=== PATIENT | female | born 1950 | race Caucasian/White ===

== ENCOUNTER → 2018-02-22 | Outpatient (CLI) | payer MEDICARE ==
--- NOTE | 2018-02-22 15:09 | CONS ---
CONSULTATION DATE OF SERVICE: 03/04/2018 A 68-year-old lady who has been evaluated in the [facility] for difficulties to initiate and maintain sleep and possible obstructive sleep apnea-hypopnea syndrome. HISTORY OF PRESENT ILLNESS/SLEEP-WAKE EVALUATION: Patient usual sleep schedule from 11 p.m. until 6 - 7 a.m. She does have problem with falling asleep, has TV set in bedroom, usually sleeps on the side by herself. Sleeps with snoring and multiple awakenings from sleep with dry mouth, episodes of restless legs and nocturia. Usually she wakes up around 5 - 6 times at night with up to 4 episodes of nocturia at night. She also has episodes of kicking at night and feels discomfort in the legs while falling asleep. There is decreasing with movements of the legs. No history of hypnagogic hallucinations, sometimes patient wakes up in the middle of the night and know that she is in the middle of the dreaming, but at the same time that she is aware about surrounding. Leonore Sleepiness Scale significantly increased to 13. PAST MEDICAL HISTORY: 1. Positive for diabetes mellitus, on treatment with insulin, several eyelid surgery for low position of eyelids, possibly history of floppy eyelid syndrome. 2. History of increased size of the thyroid. MEDICATIONS: Insulin. SOCIAL HISTORY: Negative for smoking. Alcohol consumption occasional. FAMILY HISTORY: Heart problems, arthritis, sleep apnea, snoring, diabetes, thyroid problem, restless legs. REVIEW OF SYSTEMS: Multiple awakenings from sleep, restless leg symptoms, sleepiness during the day. . PHYSICAL EXAM: lady without distress. BP 146/82, HR 90, RR 16, height 5 feet 5 inches, weight 245, body mass index 40.7. Neck 15 inches in circumference. Temperature 98.3, oxygen saturation at room air 97%. OROPHARYNX: Moderately low position of soft palate, short distance between soft palate and posterior pharyngeal wall. Some restriction of nasal breathing. Thyroid palpable with a question. ABDOMEN: Obese. LUNGS Clear to percussion and to auscultation. Good air exchange. No wheezing or rhonchi. HEART S1, S2 regular. No murmurs, gallops, or rubs. EXTREMITIES No clubbing or cyanosis. [employer] Awake, alert, and oriented X3. Cranial nerves 2 to 7 intact. There is no fasciculation or atrophy. noted. No focal deficits observed. IMPRESSION: 1. Snoring, short distance between soft palate and pharyngeal wall, multiple awakenings from sleep with a dry mouth and nocturia, excessive daytime sleepiness, obstructive sleep apnea-hypopnea syndrome. 2. Restless legs syndrome. 3. Episodes of multiple kicking at night. Possible periodic limb movements. 4. Obesity. 5. Diabetes mellitus. 6. Status post two surgeries for low positions of eyelids. Possible history of floppy eyelid syndrome which is associated with increasing risk of sleep apnea. 7. Status post face lift surgery. PLAN: 1. Polysomnography for evaluation of patient's breathing during sleep and also to check for periodic limb movements. 2. CPAP/BiPAP titration if sleep study confirms obstructive sleep apnea-hypopnea syndrome. 3. Preferable position during sleep on the side. 4. No driving if patient feels any sleepiness. 5. I will see patient for follow up visit to explain results of testing and following plan. 6. Psychological techniques for treatment of insomnia should include stimulus control, paradoxical intention, worry time, no watching clock, which should include stop watching TV in bedroom. Thank you very much for referring this patient for consultation. Sincerely, Lyndon Mendoza MD, PhD, FAASM Diplomat of [place] [employer] [place] [employer] [facility] Lyndon Mendoza MD, PhD, FAASM Diplomat of [place] [employer] [place] [employer] [facility] [employer] of [facility] 1. Just take plan from my template #1 will be polysomnography for evaluation of patient breathing during the sleep and also to check for periodic limb movements at the end of the plan. Also place put psychological beginnings for treatment of insomnia should include stimulus control, paradoxical intention, worry time no watching clock which should include stuff, watching TV in bedroom. 2. Thank you very much for asking space for consultation. 3. 4. Sincerely. 5. 6. 7. 8. Lyndon Mendoza MD, PhD, FAASM. 9. Diplomat of [place] [employer]. 10.[place] [employer]. 11.[facility] [facility] [place] [facility]. 12. 13. MMODL / IJN: [id number] /
== END | disposition home or self-care (01) ==
LOC: SLEEP 10:47
PROVIDERS: ATTEND Internal Medicine
DX: G47.33 Obstructive sleep apnea (adult) (pediatric) (principal); G25.81 Restless legs syndrome; E66.9 Obesity, unspecified; E11.9 Type 2 diabetes mellitus without complications; Z68.41 Body mass index [BMI] 40.0-44.9, adult; Z98.890 Other specified postprocedural states; Z79.4 Long term (current) use of insulin
CPT/HCPCS: 99211

== ENCOUNTER → 2018-06-14 | Outpatient (CLI) | payer MEDICARE ==
--- NOTE | 2018-06-14 16:24 | PN ---
PROGRESS NOTE DATE OF SERVICE: 06/14/2018 This patient is a 68-year-old lady who has been followed in [facility] Center for treatment of obstructive sleep apnea-hypopnea syndrome. Recently the patient had a polysomnogram and CPAP titration, and I discussed results of her sleep studies with the patient in detail. During diagnostic sleep study, it was documented that she has severe sleep apnea, with apnea-hypopnea index 33 and oxygen desaturation to 76.4%. During titration her respiration was under control with CPAP. She received her CPAP unit and today is her first visit after she started to use her CPAP machine. The patient is able to use her CPAP unit every night for the whole night without significant problems. There were recently some problems related to humidification, but after adjustments, now she is fine and does not have any problems. She sleeps better with the machine. She feels better during the day. Her [place] Sleepiness Scale today is 6. I checked her CPAP unit. Reading from the machine showed usage 100% of the nights, and 93% of the nights for more than 4 hours. Average usage is 7 hours 34 minutes per night. Pressure is in the range between 7 and 12. Her 95th percentile pressure is 11.8. Apnea-hypopnea index reading is 2 to 2.4, which is absolutely within normal range. MEDICATIONS: Insulin. PHYSICAL EXAMINATION: GENERAL: A pleasant patient in no distress. VITAL SIGNS: BP 152/72, HR 72, RR 16, weight 249, temperature 97.6, oxygen saturation at room air 98%. HEENT: PERRLA, EOMI. Evaluation of oropharynx showed tongue protrudes midline. Low position of soft palate. NECK: Supple. No JVD. Thyroid is not palpable. LUNGS: Clear to percussion and to auscultation. Good air exchange. No wheezing or rhonchi. HEART: S1, S2 regular. No murmurs, gallops or rubs. ABDOMEN: Obese. EXTREMITIES: No clubbing or cyanosis. RECORD LABEL INTERN: Awake, alert, and oriented X3. Cranial nerves 2 to 7 intact. There is no fasciculation or atrophy. noted. No focal deficits observed. IMPRESSION: 1. Severe obstructive sleep apnea-hypopnea syndrome; apnea-hypopnea index 33. The patient demonstrated 100% compliance with treatment, benefitting from treatment. 2. Obesity. 3. Diabetes mellitus. 4. Status post surgical treatment of low position of eyelids, possible floppy eyelid syndrome. 5. Status post face lift surgery. PLAN: 1. Patient will continue to use her CPAP equipment every night for the whole night. 2. Sleep hygiene with regular time in bed for at least 8 hours. 3. No driving if feeling any sleepiness. 4. Losing weight. 5. We will maintain all necessary CPAP prescriptions, including mask, tube, filters. 6. Follow-up visit in 10 months. Thank you very much for allowing me to participate in the management of your patient. Sincerely, Lyndon Mendoza MD, PhD, FAASM Diplomat of [place] [employer] [place] [employer] Screening Representative of [facility] [place] MMODL / IJN: [id number] /
== END ==
LOC: SLEEP 13:38
PROVIDERS: ATTEND Internal Medicine
DX: G47.33 Obstructive sleep apnea (adult) (pediatric) (principal); E66.9 Obesity, unspecified; E11.9 Type 2 diabetes mellitus without complications; Z98.890 Other specified postprocedural states; Z99.89 Dependence on other enabling machines and devices; Z79.4 Long term (current) use of insulin

== ENCOUNTER → 2020-04-14 | Outpatient (CLI) | payer MEDICARE ==
--- NOTE | 2020-04-14 14:16 | US ---
EXAMINATION TYPE: US thyroid st tissue head/neck DATE OF EXAM: 04/14/2020 COMPARISON: US CLINICAL HISTORY: E04.1 thyroid nodule. Takes low dose Synthroid. GLAND SIZE: Right Lobe: 5.7 x 2.6 x 2.0 cm Overall Parenchyma: heterogenous Left Lobe: 6.3 x 3.3 x 2.3 cm Overall Parenchyma: heterogeneous Isthmus Thickness: 1.2 cm NODULES RIGHT: # of nodules measured on right: 2 1. 1.1 X 0.9 x 0.4 cm solid or almost completely solid, hypoechoic nodule mid pole, which is wider than tall, with ill-defined margins, without echogenic foci. Prior size: 0.9 x 0.9 x 0.6 cm 2. 0.7 X 0.6 x 0.5 cm solid or almost completely solid, hypoechoic nodule, which is wider than tall , with ill-defined margins, without echogenic foci. Prior size: 0.7 x 0.7 x 0.5 cm LEFT: # of nodules measured on left: 1 1. 0.9 X 0.96 x 0.6 cm solid or almost completely solid, hyperechoic nodule, which is wider than ta ll, with lobulated or irregular margins, without echogenic foci. Prior size: not seen ISTHMUS: # of nodules measured in the isthmus: 0 Bilateral neck scanned: no evidence of lymphadenopathy. IMPRESSION: Moderately suspicious, follow-up recommended in one year 2017 ACR TI-RADS LEVEL: TR 4 *Highest TI-RADS level nodule reported
[2020-04-14 14:53] LABS: T4, Free (Free Thyroxine) 0.92 ng/dL (0.78-2.19)
[2020-04-14 22:11] LABS: Thyroid Peroxidase Antibodies 807.5 U/mL (0.0-60.0)
== END | disposition home or self-care (01) ==
LOC: RADUSWWP 12:56
PROVIDERS: ATTEND Allergy & Immunology
DX: E04.1 Nontoxic single thyroid nodule (principal); E03.9 Hypothyroidism, unspecified
CPT/HCPCS: 76536; 84439; 84443; 86376; 86800; 86900; 86901

== ENCOUNTER → 2020-04-28 | Outpatient (CLI) | payer MEDICARE ==
[2020-04-29 10:34] LABS: Avocado Class CLASS 0; Latex IgE Class CLASS 0
== END | disposition home or self-care (01) ==
LOC: LABWHC1 13:15
PROVIDERS: ATTEND Allergy & Immunology
DX: L50.8 Other urticaria (principal)
CPT/HCPCS: 36415; 86003

== ENCOUNTER → 2020-11-25 | Outpatient (CLI) | payer MEDICARE ==
--- NOTE | 2020-11-25 11:51 | US ---
EXAMINATION TYPE: US thyroid st tissue head/neck DATE OF EXAM: 11/25/2020 COMPARISON: US 04/14/2020 CLINICAL HISTORY: E04.1 Thyroid Nodule. F/U GLAND SIZE: Right Lobe: 6.3 x 1.8 x 2.8 cm Overall Parenchyma: Grossly heterogeneous Left Lobe: 7.4 x 2.4 x 2.5 cm Overall Parenchyma: Grossly heterogeneous Isthmus Thickness: 1.1 cm NODULES RIGHT: # of nodules measured on right: 2 1. 0.9 X 0.4 x 0.7 cm, mid, solid or almost completely solid, isoechoic nodule, which is wider than tall, with ill-defined margins, without echogenic foci. Prior size: 1.1 x 0.9 x 0.4 cm 2. 0.6 X 0.5 x 0.6 cm, mid, solid or almost completely solid, hyperechoic nodule, which is wider th an tall, with ill-defined margins, without echogenic foci. Prior size: 0.7 x 0.6 x 0.5 cm LEFT: # of nodules measured on left: 0 Bilateral neck scanned, no evidence of lymphadenopathy. Bilateral thyroid enlarged, heterogeneous. St able nodules right. IMPRESSION: Small right-sided thyroid nodules. 2017 ACR TI-RADS LEVEL: TR-RADS 3 - Mildly Suspicious: Follow if > 1.5 cm, FNA if > 2.5 cm *Highest TI-RADS level nodule reported
== END | disposition home or self-care (01) ==
LOC: RADUSWWP 07:28
PROVIDERS: ATTEND Otolaryngology
DX: E04.2 Nontoxic multinodular goiter (principal)
CPT/HCPCS: 76536

== ENCOUNTER 2021-05-16 16:15 | Inpatient (IN) | payer MEDICARE ==
[2021-05-16] MEDS ORDERED: SODIUM CHLORIDE 0.9% 1,000 ML IV ONE ×2 (16:41→17:37)
[2021-05-16] MEDS ORDERED: SODIUM CHLORIDE 0.9% 500 ML 500 ML IV ONE (16:41)
[2021-05-16] MEDS ORDERED: ONDANSETRON 4 MG/2 ML VIAL IVP STA (16:42)
--- NOTE | 2021-05-16 16:45 | ED ---
Recheck HPI - General Chief Complaint: Recheck/Abnormal Lab/Rx Stated Complaint: SOB,Fatigue Time Seen by Provider: 05/16/21 16:33 Source: patient Mode of arrival: ambulatory Limitations: no limitations - History of Present Illness Initial Comments: 71 year-old female patient presents to the emergency department for evaluation of vomiting, hyperglycemia, and dry cough. States that symptoms started a few days ago. States that she did have a negative home COVID test this morning. States that she was recently started on new insulin, her blood sugars are controlled when she goes to sleep, and are high when she wakes up on the morning. She denies any fever or chills. She reports chest pressure and shortness of breath both at rest and with activity. Denies any nasal congestion or drainage. Denies any diarrhea or constipation. Denies any sick contacts. Her physician sent her in for evaluation for possible ketosis. - Related Data Home Medications Medication Instructions Recorded Confirmed Insulin Regular [humuLIN R] 15 units SQ TID 08/05/14 08/07/14 Multivitamins, Thera [Theragran] 1 each PO DAILY 08/05/14 08/07/14 Allergies Allergy/AdvReac Type Severity Reaction Status Date / Time Penicillins Allergy Rash/Hives. Verified 05/16/21 16:22 ITCHING. INFLAMMED SKIN. Review of Systems ROS Statement: Those systems with pertinent positive or pertinent negative responses have been documented in the HPI. ROS Other: All systems not noted in ROS Statement are negative. Past Medical History Past Medical History: Diabetes Mellitus Additional Past Medical History / Comment(s): INSULIN DEPENDENT History of Any Multi-Drug Resistant Organisms: None Reported Past Surgical History: Appendectomy, Tonsillectomy Additional Past Surgical History / Comment(s): RIGHT OOPHERECTOMY. ABDOMINALPLASTY, BREAST REDUCTION. BILATERAL BLEPHAROPLASTY. Past Anesthesia/Blood Transfusion Reactions: Previous Problems w/ Anesthesia Additional Past Anesthesia/Blood Transfusion Reaction / Comment(s): STATES "" POST ANESTHESIA/SURGERY A CHILD. Past Psychological History: No Psychological Hx Reported Smoking Status: Never smoker Past Alcohol Use History: None Reported Past Drug Use History: None Reported General Exam Limitations: no limitations General appearance: alert, in no apparent distress, other (This is a well- developed, well-nourished adult female in no acute distress.) ENT exam: Present: normal exam, normal oropharynx, mucous membranes moist Respiratory exam: Present: normal lung sounds bilaterally. Absent: respiratory distress, wheezes, rales, rhonchi, stridor Cardiovascular Exam: Present: normal rhythm, tachycardia, normal heart sounds. Absent: systolic murmur, diastolic murmur, rubs, gallop, clicks GI/Abdominal exam: Present: soft, normal bowel sounds. Absent: distended, tenderness, guarding, rebound, rigid Neurological exam: Present: alert, oriented X3, CN II-XII intact Psychiatric exam: Present: normal affect, normal mood Skin exam: Present: warm, dry, intact, normal color. Absent: rash Course Vital Signs 05/16/21 05/16/21 16:22 17:42 Temperature 98.2 F Pulse Rate 154 H 124 H Respiratory 20 18 Rate Blood Pressure 144/83 151/82 O2 Sat by Pulse 100 97 Oximetry Medical Decision Making - Medical Decision Making 71-year-old female patient presented to the emergency department today for evaluation of weakness, vomiting, dry cough, shortness of breath. Physical examination did reveal clear equal lung sounds. She is tachycardic in the 150s. Initial blood glucose check was 489. Labs reviewed and did reveal sodium of 1:30, potassium 5.2, chloride 94, carbon dioxide 9, anion gap 27, BUN 19, glucose 528, lactic acid 3.1, phosphorus 5.3, AST 37, alk phos 212. She did test positive for acetone. Covid test was negative. Lactic acid is more related to DKA rather than infection. Her white blood cell count is normal. Chest x-ray was negative for infection. She will be admitted to the hospital with insulin drip and IV fluids. I did discuss findings results with her. She is agreeable this plan. My attending is Dr. Little. - Lab Data Result diagrams: 05/16/21 17:00 05/16/21 17:00 Lab Results 05/16/21 05/16/21 05/16/21 Range/Units 16:52 16:55 17:00 WBC 8.1 (3.8-10.6) k/uL RBC 4.06 (3.80-5.40) m/uL Hgb 12.9 (11.4-16.0) gm/dL Hct 42.0 (34.0-46.0) % MCV 103.6 H (80.0-100.0) fL MCH 31.9 (25.0-35.0) pg MCHC 30.8 L (31.0-37.0) g/dL RDW 13.4 (11.5-15.5) % Plt Count 302 (150-450) k/uL MPV 9.1 Neutrophils % 75 % Lymphocytes % 20 % Monocytes % 3 % Eosinophils % 0 % Basophils % 1 % Neutrophils # 6.1 (1.3-7.7) k/uL Lymphocytes # 1.6 (1.0-4.8) k/uL Monocytes # 0.3 (0-1.0) k/uL Eosinophils # 0.0 (0-0.7) k/uL Basophils # 0.0 (0-0.2) k/uL Hypochromasia Marked Macrocytosis Slight Sodium (137-145) mmol/L Potassium (3.5-5.1) mmol/L Chloride (98-107) mmol/L Carbon Dioxide (22-30) mmol/L Anion Gap mmol/L BUN (7-17) mg/dL Creatinine (0.52-1.04) mg/dL Est GFR (CKD-EPI)AfAm (>60 ml/min/1.73 sqM) Est GFR (CKD-EPI)NonAf (>60 ml/min/1.73 sqM) Glucose (74-99) mg/dL POC Glucose (mg/dL) 492 H 489 H (75-99) mg/dL POC Glu [place] ID Radha, Kel Radha, Kel Plasma Lactic Acid Lazaro (0.7-2.0) mmol/L Calcium (8.4-10.2) mg/dL Phosphorus (2.5-4.5) mg/dL Magnesium (1.6-2.3) mg/dL Total Bilirubin (0.2-1.3) mg/dL AST (14-36) U/L ALT (4-34) U/L Alkaline Phosphatase (38-126) U/L Total Protein (6.3-8.2) g/dL Albumin (3.5-5.0) g/dL Acetone, Qual (Negative) Coronavirus (PCR) (Not Detectd) 01/23/22 01/23/22 01/23/22 Range/Units 17:00 17:00 17:41 WBC (3.8-10.6) k/uL RBC (3.80-5.40) m/uL Hgb (11.4-16.0) gm/dL Hct (34.0-46.0) % MCV (80.0-100.0) fL MCH (25.0-35.0) pg MCHC (31.0-37.0) g/dL RDW (11.5-15.5) % Plt Count (150-450) k/uL MPV Neutrophils % % Lymphocytes % % Monocytes % % Eosinophils % % Basophils % % Neutrophils # (1.3-7.7) k/uL Lymphocytes # (1.0-4.8) k/uL Monocytes # (0-1.0) k/uL Eosinophils # (0-0.7) k/uL Basophils # (0-0.2) k/uL Hypochromasia Macrocytosis Sodium 130 L (137-145) mmol/L Potassium 5.2 H (3.5-5.1) mmol/L Chloride 94 L (98-107) mmol/L Carbon Dioxide 9 L* (22-30) mmol/L Anion Gap 27 mmol/L BUN 19 H (7-17) mg/dL Creatinine 0.94 (0.52-1.04) mg/dL Est GFR (CKD-EPI)AfAm 70 (>60 ml/min/1.73 sqM) Est GFR (CKD-EPI)NonAf 61 (>60 ml/min/1.73 sqM) Glucose 528 H* (74-99) mg/dL POC Glucose (mg/dL) (75-99) mg/dL POC Glu [place] ID Plasma Lactic Acid Lazaro 3.1 H* (0.7-2.0) mmol/L Calcium 9.6 (8.4-10.2) mg/dL Phosphorus 5.3 H (2.5-4.5) mg/dL Magnesium 1.9 (1.6-2.3) mg/dL Total Bilirubin 0.9 (0.2-1.3) mg/dL AST 37 H (14-36) U/L ALT 27 (4-34) U/L Alkaline Phosphatase 212 H (38-126) U/L Total Protein 7.8 (6.3-8.2) g/dL Albumin 4.5 (3.5-5.0) g/dL Acetone, Qual Positive (Negative) Coronavirus (PCR) Not Detected (Not Detectd) - EKG Data -: EKG Interpreted by Me EKG Comments: EKG obtained at 1634 shows sinus tachycardia with a first-degree AV block, left anterior fascicular block. Ventricular rate is 151, DC interval 216, QRS duration 90, QT 328, QTC 519. No evidence of ST elevation or depression. - Radiology Data Radiology results: report reviewed, image reviewed 2 views of the chest are obtained. Report was reviewed in its entirety. Impression by Dr. Alves shows no active cardiopulmonary disease. No change. Disposition Clinical Impression: DKA (diabetic ketoacidosis) Disposition: ADMITTED IP TO THIS [facility] Condition: Serious Referrals: Vi Mckenzie MD [Primary Care Provider] - 1-2 days Decision to Admit Reason: Admit from EC Decision Date: 05/16/21 Decision Time: 18:10
[2021-05-16 17:08] LABS: Glucose,Whole Blood 492 mg/dL (75-99)
[2021-05-16 17:08] LABS: Glucose,Whole Blood 489 mg/dL (75-99)
[2021-05-16 17:16] LABS: Basophils % (A) 1 %; Eosinophils % (A) 0 %; HGB 12.9 gm/dL (11.4-16.0); Hypochromasia Marked; Lymphocytes # (A) 1.6 k/uL (1.0-4.8); Lymphocytes % (A) 20 %; MCH 31.9 pg (25.0-35.0); MCHC 30.8 g/dL (31.0-37.0); MCV 103.6 fL (80.0-100.0); Macrocytosis Slight; Mean Platelet Volume 9.1; Monocytes # (A) 0.3 k/uL (0-1.0); Monocytes % (A) 3 %; Neutrophils # (A) 6.1 k/uL (1.3-7.7); Neutrophils % (A) 75 %; Platelet Count 302 k/uL (150-450); RBC 4.06 m/uL (3.80-5.40); RDW 13.4 % (11.5-15.5); WBC 8.1 k/uL (3.8-10.6)
[2021-05-16 17:26] LABS: ALT 27 U/L (4-34); AST 37 U/L (14-36); African American GFR (CKD) 70 (>60 ml/min/1.73 sqM); Albumin 4.5 g/dL (3.5-5.0); Alkaline Phosphatase 212 U/L (38-126); Anion Gap 27 mmol/L; Blood Urea Nitrogen 19 mg/dL (7-17); Calcium 9.6 mg/dL (8.4-10.2); Chloride 94 mmol/L (98-107); Magnesium 1.9 mg/dL (1.6-2.3); Non-African American GFR(CKD) 61 (>60 ml/min/1.73 sqM); Phosphorus 5.3 mg/dL (2.5-4.5); Sodium 130 mmol/L (137-145); Total Bilirubin 0.9 mg/dL (0.2-1.3); Total Protein 7.8 g/dL (6.3-8.2)
--- NOTE | 2021-05-16 17:29 | XR ---
EXAMINATION TYPE: XR chest 2V DATE OF EXAM: 05/16/2021 COMPARISON: NONE HISTORY: Cough and short of breath TECHNIQUE: 2 views FINDINGS: Heart is normal. Lungs are clear of infiltrate. There is no heart failure. There are no hil ar masses. Bony thorax is intact. There are chest leads. IMPRESSION: No active cardiopulmonary disease. No change.
[2021-05-16 17:35] LABS: Carbon Dioxide 9 mmol/L (22-30); Glucose 528 mg/dL (74-99); Potassium 5.2 mmol/L (3.5-5.1)
[2021-05-16] MEDS ORDERED: INSULIN REGULAR BOLUS (FROM DRIP BAG) IV ONE (17:37)
[2021-05-16] MEDS ORDERED: Potassium Replacement Protocol 1 EACH MISC MISCELLANE PRN (17:37)
[2021-05-16] MEDS ORDERED: Magnesium Replacement Protocol 1 EACH MISC MISCELLANE PRN (17:37)
[2021-05-16] MEDS: INSULIN REGULAR 100 UNIT in SODIUM CHLORIDE 0.9% 100 ML IV SCH (18:05)
[2021-05-16] MEDS ORDERED: ONDANSETRON 4 MG/2 ML VIAL IVP PRN (18:06)
[2021-05-16] MEDS ORDERED: NALOXONE 0.4 MG/ML 1 ML VIAL IV PRN (18:06)
[2021-05-16 19:05] LABS: Glucose,Whole Blood 497 mg/dL (75-99)
[2021-05-16 19:17] LABS: VBG PH 7.18 (7.31-7.41)
[2021-05-16 19:19] LABS: Phosphorus 4.2 mg/dL (2.5-4.5); Potassium 4.9 mmol/L (3.5-5.1)
[2021-05-16 20:21] LABS: Glucose,Whole Blood 284 mg/dL (75-99)
[2021-05-16] MEDS: SODIUM CHLORIDE 0.9% 1,000 ML IV SCH (20:31)
[2021-05-16] MEDS: D5-0.45% NACL WITH KCL 20MEQ/L 1,000 ML IV SCH (20:36)
[2021-05-16 21:10] LABS: Glucose,Whole Blood 178 mg/dL (75-99)
[2021-05-16 22:15] LABS: Glucose,Whole Blood 112 mg/dL (75-99)
[2021-05-16 23:19] LABS: Glucose,Whole Blood 102 mg/dL (75-99)
[2021-05-17 00:27] LABS: Potassium 4.4 mmol/L (3.5-5.1)
[2021-05-17 00:38] LABS: Glucose,Whole Blood 155 mg/dL (75-99)
[2021-05-17 01:34] LABS: Glucose,Whole Blood 201 mg/dL (75-99)
[2021-05-17 02:16] LABS: Glucose,Whole Blood 118 mg/dL (75-99)
[2021-05-17 03:08] LABS: Glucose,Whole Blood 100 mg/dL (75-99)
[2021-05-17 03:43] LABS: Glucose,Whole Blood 101 mg/dL (75-99)
[2021-05-17 04:27] LABS: Glucose,Whole Blood 110 mg/dL (75-99)
[2021-05-17 06:13] LABS: Glucose,Whole Blood 293 mg/dL (75-99)
[2021-05-17 06:13] LABS: Glucose,Whole Blood 245 mg/dL (75-99)
[2021-05-17] MEDS: INSULIN REGULAR 100 UNIT in SODIUM CHLORIDE 0.9% 100 ML IV SCH ×2 (06:15→19:55)
[2021-05-17] MEDS: D5-0.45% NACL WITH KCL 20MEQ/L 1,000 ML IV SCH ×3 (06:15→19:02)
[2021-05-17] MEDS: LEVOTHYROXINE 50 MCG TAB PO SCH (06:18)
[2021-05-17 07:14] LABS: Calcium 8.6 mg/dL (8.4-10.2); Potassium 4.4 mmol/L (3.5-5.1)
[2021-05-17 07:51] LABS: Glucose,Whole Blood 307 mg/dL (75-99)
[2021-05-17 08:53] LABS: Glucose,Whole Blood 267 mg/dL (75-99)
[2021-05-17] MEDS: CYANOCOBALAMIN 500 MCG TAB PO SCH (09:12)
[2021-05-17 09:36] LABS: Glucose,Whole Blood 248 mg/dL (75-99)
[2021-05-17 10:56] LABS: Glucose,Whole Blood 309 mg/dL (75-99)
[2021-05-17 11:48] LABS: Glucose,Whole Blood 252 mg/dL (75-99)
[2021-05-17 12:33] LABS: African American GFR (CKD) >90 (>60 ml/min/1.73 sqM); Anion Gap 15 mmol/L; Blood Urea Nitrogen 13 mg/dL (7-17); Carbon Dioxide 17 mmol/L (22-30); Chloride 102 mmol/L (98-107); Glucose 280 mg/dL (74-99); Non-African American GFR(CKD) 82 (>60 ml/min/1.73 sqM); Potassium 3.9 mmol/L (3.5-5.1); Sodium 134 mmol/L (137-145)
[2021-05-17 12:33] LABS: Glucose,Whole Blood 208 mg/dL (75-99)
--- NOTE | 2021-05-17 12:50 | P.HPIM ---
History of Present Illness 71-year-old female was having symptoms of dry cough generalized weakness and nausea vomiting because of which patient went to urgent care thinking that she has COVID-19 although Covid 19 is negative patient is found to have highly e levated blood sugars and patient was later found to be in DKA and patient was subsequently admitted here patient blood sugars has not been under well control lately since her insulin regimen was changed patient looks like takes short- acting insulin around 30 units with each meal does not duglas remain on long- acting insulin patient is type II diabetic insulin deficient. Patient has multiple other provided abnormalities consistent with DKA including hyponatremia and hyperkalemia which improved at this time and patient is presently in DKA protocol patient last anion gap is 15. REVIEW OF SYSTEMS: CONSTITUTIONAL: No fever,HEENT: No recent visual problems or hearing problems. Denied any sore throat. CARDIOVASCULAR: No chest pain, orthopnea, PND, no palpitations, no syncope. PULMONARY: No shortness of breath, no cough, no hemoptysis. GASTROINTESTINAL: As mentioned in HPI NEUROLOGICAL: No headaches, no weakness, no numbness. HEMATOLOGICAL: Denies any bleeding or petechiae. GENITOURINARY: Denies any burning micturition, frequency, or urgency. MUSCULOSKELETAL/RHEUMATOLOGICAL: Denies any joint pain, swelling, or any muscle pain. ENDOCRINE: Denies any polyuria or polydipsia. The rest of the 14-point review of systems is negative. PHYSICAL EXAMINATION: GENERAL: The patient is clinically doing well alert oriented 3 HEENT: Pupils are round and equally reacting to light. EOMI. No scleral icterus. No conjunctival pallor. Normocephalic, atraumatic. No pharyngeal erythema. No thyromegaly. CARDIOVASCULAR: S1 and S2 present. No murmurs, rubs, or gallops. PULMONARY: Chest is clear to auscultation, no wheezing or crackles. ABDOMEN: Soft, nontender, nondistended, normoactive bowel sounds. No palpable organomegaly. MUSCULOSKELETAL: No joint swelling or deformity. EXTREMITIES: No cyanosis, clubbing, or pedal edema. NEUROLOGICAL: Gross neurological examination did not reveal any focal deficits. SKIN: No rashes. Assessment and plan -Diabetic ketoacidosis acidosis: Continue with DKA protocol was anion gap comes down below 12 patient will be transitioned to IV normal saline, long-acting insulin will use a 45 units of long-acting insulin, along with 15 units of the short-acting insulin with each meal. Along with sliding scale. Patient presently is on IV insulin closely monitor electrolytes serum sodium is 134 secondary to elevated blood sugars. -Anion gap metabolic acidosis secondary to diabetic ketoacidosis -Hypothyroidism -Type 2 diabetes mellitus uncontrolled elevated blood sugars patient is insulin- dependent type 2 diabetic because of which patient ended up in DKA. DVT prophylaxis: Lovenox Past Medical History Past Medical History: Diabetes Mellitus, Osteoarthritis (OA), Sleep Apnea/CPAP/BIPAP, Thyroid Disorder Additional Past Medical History / Comment(s): INSULIN DEPENDENT JUST GOT NEW C- PAP History of Any Multi-Drug Resistant Organisms: None Reported Past Surgical History: Appendectomy, Tonsillectomy Additional Past Surgical History / Comment(s): RIGHT OOPHERECTOMY. ABDOMINALPLASTY, BREAST REDUCTION. BILATERAL BLEPHAROPLASTY. Past Anesthesia/Blood Transfusion Reactions: Previous Problems w/ Anesthesia Additional Past Anesthesia/Blood Transfusion Reaction / Comment(s): STATES "" POST ANESTHESIA/SURGERY A CHILD. Past Psychological History: No Psychological Hx Reported Smoking Status: Never smoker Past Alcohol Use History: None Reported Past Drug Use History: None Reported - Past Family History Mother Family Medical History: Congestive Heart Failure (CHF) Father Family Medical History: No Reported History Medications and Allergies Home Medications Medication Instructions Recorded Confirmed Type Acetaminophen [Tylenol Arthritis] 1,300 mg PO DAILY 05/16/21 05/16/21 History Cyanocobalamin (Vitamin B-12) 1,000 mcg PO DAILY 05/16/21 05/16/21 History [Vitamin B-12] Insulin Lispro-Aabc [Lyumjev 30 units SQ AC-TID 05/16/21 05/16/21 History Kwikpen U-200] Levothyroxine Sodium [Synthroid] 50 mcg PO DAILY 05/16/21 05/16/21 History Allergies Allergy/AdvReac Type Severity Reaction Status Date / Time Penicillins Allergy Rash/Hives. Verified 05/16/21 18:49 ITCHING. INFLAMMED SKIN. Physical Exam Vitals: Vital Signs Temp Pulse Pulse Resp BP BP Pulse Ox 05/17/21 12:00 98.6 F 102 H 20 130/72 97 05/17/21 09:10 98.1 F 92 18 123/79 99 05/17/21 04:00 97.7 F 92 18 116/68 97 05/17/21 00:00 98.1 F 92 18 123/74 97 05/16/21 21:35 97.3 F L 109 H 16 150/78 99 05/16/21 21:26 97.3 F L 109 H 18 150/78 99 05/16/21 20:43 100 20 98 05/16/21 19:07 108 H 18 152/81 97 05/16/21 17:42 124 H 18 151/82 97 05/16/21 16:22 98.2 F 154 H 20 144/83 100 Intake and Output 05/16/21 05/17/21 05/17/21 22:59 06:59 14:59 Intake Total 43.526 19.451 13.122 Output Total 800 Balance 43.526 -780.549 13.122 Intake: Intake, IV Titration 43.526 19.451 13.122 Amount Insulin Regular 100 unit 43.526 19.451 13.122 In Sodium Chloride 0.9% 100 ml @ 0.1 UNITS/KG/HR 10.308 mls/hr IV .[id number] [facility] Rx#:[id number] Oral 0 Output: Urine 800 Other: Voiding Method Toilet Toilet Toilet # Voids 1 Weight 102.058 kg Results CBC & Chem 7: 05/16/21 17:00 05/17/21 11:22 Labs: Abnormal Lab Results - Last 24 Hours (Table) 05/16/21 05/16/21 05/16/21 Range/Units 16:52 16:55 17:00 MCV 103.6 H (80.0-100.0) fL MCHC 30.8 L (31.0-37.0) g/dL VBG pH (7.31-7.41) VBG pCO2 (37-51) mmHg VBG HCO3 (24-28) mmol/L Sodium (137-145) mmol/L Potassium (3.5-5.1) mmol/L Chloride (98-107) mmol/L Carbon Dioxide (22-30) mmol/L BUN (7-17) mg/dL Glucose (74-99) mg/dL POC Glucose (mg/dL) 492 H 489 H (75-99) mg/dL Plasma Lactic Acid Lazaro (0.7-2.0) mmol/L Phosphorus (2.5-4.5) mg/dL AST (14-36) U/L Alkaline Phosphatase (38-126) U/L 05/16/21 05/16/21 05/16/21 Range/Units 17:00 17:00 18:29 MCV (80.0-100.0) fL MCHC (31.0-37.0) g/dL VBG pH 7.18 L* (7.31-7.41) VBG pCO2 33 L (37-51) mmHg VBG HCO3 12 L (24-28) mmol/L Sodium 130 L (137-145) mmol/L Potassium 5.2 H (3.5-5.1) mmol/L Chloride 94 L (98-107) mmol/L Carbon Dioxide 9 L* (22-30) mmol/L BUN 19 H (7-17) mg/dL Glucose 528 H* (74-99) mg/dL POC Glucose (mg/dL) (75-99) mg/dL Plasma Lactic Acid Lazaro 3.1 H* (0.7-2.0) mmol/L Phosphorus 5.3 H (2.5-4.5) mg/dL AST 37 H (14-36) U/L Alkaline Phosphatase 212 H (38-126) U/L 05/16/21 05/16/21 05/16/21 Range/Units 18:29 19:02 19:58 MCV (80.0-100.0) fL MCHC (31.0-37.0) g/dL VBG pH (7.31-7.41) VBG pCO2 (37-51) mmHg VBG HCO3 (24-28) mmol/L Sodium 131 L (137-145) mmol/L Potassium (3.5-5.1) mmol/L Chloride 96 L (98-107) mmol/L Carbon Dioxide 10 L (22-30) mmol/L BUN 19 H (7-17) mg/dL Glucose 500 H (74-99) mg/dL POC Glucose (mg/dL) 497 H 284 H (75-99) mg/dL Plasma Lactic Acid Lazaro (0.7-2.0) mmol/L Phosphorus (2.5-4.5) mg/dL AST (14-36) U/L Alkaline Phosphatase (38-126) U/L 05/16/21 05/16/21 05/16/21 Range/Units 20:00 21:06 21:55 MCV (80.0-100.0) fL MCHC (31.0-37.0) g/dL VBG pH (7.31-7.41) VBG pCO2 (37-51) mmHg VBG HCO3 (24-28) mmol/L Sodium (137-145) mmol/L Potassium (3.5-5.1) mmol/L Chloride (98-107) mmol/L Carbon Dioxide (22-30) mmol/L BUN (7-17) mg/dL Glucose (74-99) mg/dL POC Glucose (mg/dL) 178 H 112 H (75-99) mg/dL Plasma Lactic Acid Lazaro 3.2 H* (0.7-2.0) mmol/L Phosphorus (2.5-4.5) mg/dL AST (14-36) U/L Alkaline Phosphatase (38-126) U/L 05/16/21 05/16/21 05/16/21 Range/Units 23:14 23:14 23:14 MCV (80.0-100.0) fL MCHC (31.0-37.0) g/dL VBG pH (7.31-7.41) VBG pCO2 (37-51) mmHg VBG HCO3 (24-28) mmol/L Sodium 134 L (137-145) mmol/L Potassium (3.5-5.1) mmol/L Chloride (98-107) mmol/L Carbon Dioxide 19 L (22-30) mmol/L BUN 18 H (7-17) mg/dL Glucose 100 H (74-99) mg/dL POC Glucose (mg/dL) 102 H (75-99) mg/dL Plasma Lactic Acid Lazaro 2.4 H* (0.7-2.0) mmol/L Phosphorus (2.5-4.5) mg/dL AST (14-36) U/L Alkaline Phosphatase (38-126) U/L 05/17/21 05/17/21 05/17/21 Range/Units 00:17 01:13 02:08 MCV (80.0-100.0) fL MCHC (31.0-37.0) g/dL VBG pH (7.31-7.41) VBG pCO2 (37-51) mmHg VBG HCO3 (24-28) mmol/L Sodium (137-145) mmol/L Potassium (3.5-5.1) mmol/L Chloride (98-107) mmol/L Carbon Dioxide (22-30) mmol/L BUN (7-17) mg/dL Glucose (74-99) mg/dL POC Glucose (mg/dL) 155 H 201 H 118 H (75-99) mg/dL Plasma Lactic Acid Lazaro (0.7-2.0) mmol/L Phosphorus (2.5-4.5) mg/dL AST (14-36) U/L Alkaline Phosphatase (38-126) U/L 05/17/21 05/17/21 05/17/21 Range/Units 02:48 03:05 03:31 MCV (80.0-100.0) fL MCHC (31.0-37.0) g/dL VBG pH (7.31-7.41) VBG pCO2 (37-51) mmHg VBG HCO3 (24-28) mmol/L Sodium (137-145) mmol/L Potassium (3.5-5.1) mmol/L Chloride (98-107) mmol/L Carbon Dioxide (22-30) mmol/L BUN (7-17) mg/dL Glucose (74-99) mg/dL POC Glucose (mg/dL) 100 H 101 H (75-99) mg/dL Plasma Lactic Acid Lazaro 2.9 H* (0.7-2.0) mmol/L Phosphorus (2.5-4.5) mg/dL AST (14-36) U/L Alkaline Phosphatase (38-126) U/L 05/17/21 05/17/21 05/17/21 Range/Units 04:15 05:07 06:09 MCV (80.0-100.0) fL MCHC (31.0-37.0) g/dL VBG pH (7.31-7.41) VBG pCO2 (37-51) mmHg VBG HCO3 (24-28) mmol/L Sodium (137-145) mmol/L Potassium (3.5-5.1) mmol/L Chloride (98-107) mmol/L Carbon Dioxide (22-30) mmol/L BUN (7-17) mg/dL Glucose (74-99) mg/dL POC Glucose (mg/dL) 110 H 245 H 293 H (75-99) mg/dL Plasma Lactic Acid Lazaro (0.7-2.0) mmol/L Phosphorus (2.5-4.5) mg/dL AST (14-36) U/L Alkaline Phosphatase (38-126) U/L 05/17/21 05/17/21 05/17/21 Range/Units 06:36 07:30 08:33 MCV (80.0-100.0) fL MCHC (31.0-37.0) g/dL VBG pH (7.31-7.41) VBG pCO2 (37-51) mmHg VBG HCO3 (24-28) mmol/L Sodium 134 L (137-145) mmol/L Potassium (3.5-5.1) mmol/L Chloride (98-107) mmol/L Carbon Dioxide 18 L (22-30) mmol/L BUN (7-17) mg/dL Glucose 315 H (74-99) mg/dL POC Glucose (mg/dL) 307 H 267 H (75-99) mg/dL Plasma Lactic Acid Lazaro (0.7-2.0) mmol/L Phosphorus (2.5-4.5) mg/dL AST (14-36) U/L Alkaline Phosphatase (38-126) U/L 05/17/21 05/17/21 05/17/21 Range/Units 09:32 10:54 11:22 MCV (80.0-100.0) fL MCHC (31.0-37.0) g/dL VBG pH (7.31-7.41) VBG pCO2 (37-51) mmHg VBG HCO3 (24-28) mmol/L Sodium 134 L (137-145) mmol/L Potassium (3.5-5.1) mmol/L Chloride (98-107) mmol/L Carbon Dioxide 17 L (22-30) mmol/L BUN (7-17) mg/dL Glucose 280 H (74-99) mg/dL POC Glucose (mg/dL) 248 H 309 H (75-99) mg/dL Plasma Lactic Acid Lazaro (0.7-2.0) mmol/L Phosphorus (2.5-4.5) mg/dL AST (14-36) U/L Alkaline Phosphatase (38-126) U/L 05/17/21 05/17/21 Range/Units 11:33 12:32 MCV (80.0-100.0) fL MCHC (31.0-37.0) g/dL VBG pH (7.31-7.41) VBG pCO2 (37-51) mmHg VBG HCO3 (24-28) mmol/L Sodium (137-145) mmol/L Potassium (3.5-5.1) mmol/L Chloride (98-107) mmol/L Carbon Dioxide (22-30) mmol/L BUN (7-17) mg/dL Glucose (74-99) mg/dL POC Glucose (mg/dL) 252 H 208 H (75-99) mg/dL Plasma Lactic Acid Lazaro (0.7-2.0) mmol/L Phosphorus (2.5-4.5) mg/dL AST (14-36) U/L Alkaline Phosphatase (38-126) U/L Thrombosis Risk Factor Assmnt - Choose All That Apply Any of the Below Risk Factors Present?: No Each Risk Factor Represents 2 Points: Age 61-74 years Thrombosis Risk Factor Assessment Total Risk Factor Score: 2 Thrombosis Risk Factor Assessment Level: Low Risk
[2021-05-17 13:31] LABS: Glucose,Whole Blood 142 mg/dL (75-99)
[2021-05-17 14:33] LABS: Glucose,Whole Blood 101 mg/dL (75-99)
[2021-05-17 15:41] LABS: Glucose,Whole Blood 93 mg/dL (75-99)
[2021-05-17 16:58] LABS: Glucose,Whole Blood 183 mg/dL (75-99)
[2021-05-17] MEDS: ACETAMINOPHEN TAB 500 MG TAB PO SCH (17:13)
[2021-05-17 17:31] LABS: Glucose,Whole Blood 229 mg/dL (75-99)
[2021-05-17 17:36] LABS: African American GFR (CKD) >90 (>60 ml/min/1.73 sqM); Anion Gap 10 mmol/L; Blood Urea Nitrogen 12 mg/dL (7-17); Calcium 9.2 mg/dL (8.4-10.2); Carbon Dioxide 22 mmol/L (22-30); Chloride 102 mmol/L (98-107); Glucose 188 mg/dL (74-99); Non-African American GFR(CKD) 87 (>60 ml/min/1.73 sqM); Sodium 134 mmol/L (137-145)
[2021-05-17 18:44] LABS: Glucose,Whole Blood 245 mg/dL (75-99)
[2021-05-17 18:46] VITALS: BMI 37.4
[2021-05-17] MEDS ORDERED: INSULIN DETEMIR (LEVEMIR) 100 UNIT/ML SYR SQ SCH ×2 (19:15→21:00)
[2021-05-17 19:36] LABS: Glucose,Whole Blood 278 mg/dL (75-99)
[2021-05-17] MEDS: INSULIN ASPART (NovoLOG) 100 UNIT/ML VIAL SQ SCH (19:57)
[2021-05-17 21:12] LABS: African American GFR (CKD) >90 (>60 ml/min/1.73 sqM); Anion Gap 11 mmol/L; Blood Urea Nitrogen 11 mg/dL (7-17); Calcium 8.5 mg/dL (8.4-10.2); Carbon Dioxide 20 mmol/L (22-30); Chloride 103 mmol/L (98-107); Glucose 375 mg/dL (74-99); Non-African American GFR(CKD) 82 (>60 ml/min/1.73 sqM); Potassium 4.1 mmol/L (3.5-5.1); Sodium 134 mmol/L (137-145)
[2021-05-17] MEDS: SODIUM CHLORIDE 0.9% 1,000 ML IV SCH (21:53)
[2021-05-18 01:10] LABS: African American GFR (CKD) >90 (>60 ml/min/1.73 sqM); Anion Gap 11 mmol/L; Blood Urea Nitrogen 10 mg/dL (7-17); Calcium 8.9 mg/dL (8.4-10.2); Carbon Dioxide 20 mmol/L (22-30); Chloride 106 mmol/L (98-107); Glucose 76 mg/dL (74-99); Non-African American GFR(CKD) 89 (>60 ml/min/1.73 sqM); Potassium 3.7 mmol/L (3.5-5.1); Sodium 137 mmol/L (137-145)
[2021-05-18 01:37] LABS: Glucose,Whole Blood 41 mg/dL (75-99)
[2021-05-18 01:54] LABS: Glucose,Whole Blood 97 mg/dL (75-99)
[2021-05-18 02:26] LABS: Basophils % (A) 1 %; Eosinophils % (A) 0 %; HCT 37.9 % (34.0-46.0); Lymphocytes # (A) 2.3 k/uL (1.0-4.8); Lymphocytes % (A) 38 %; MCH 31.6 pg (25.0-35.0); MCHC 31.8 g/dL (31.0-37.0); MCV 99.4 fL (80.0-100.0); Mean Platelet Volume 8.3; Monocytes # (A) 0.3 k/uL (0-1.0); Monocytes % (A) 5 %; Neutrophils # (A) 3.3 k/uL (1.3-7.7); Neutrophils % (A) 54 %; Platelet Count 238 k/uL (150-450); RBC 3.81 m/uL (3.80-5.40); RDW 13.7 % (11.5-15.5); WBC 6.1 k/uL (3.8-10.6)
[2021-05-18 02:41] LABS: African American GFR (CKD) >90 (>60 ml/min/1.73 sqM); Anion Gap 10 mmol/L; Blood Urea Nitrogen 11 mg/dL (7-17); Calcium 9.2 mg/dL (8.4-10.2); Carbon Dioxide 22 mmol/L (22-30); Chloride 105 mmol/L (98-107); Glucose 105 mg/dL (74-99); Non-African American GFR(CKD) 82 (>60 ml/min/1.73 sqM); Potassium 3.7 mmol/L (3.5-5.1); Sodium 137 mmol/L (137-145)
[2021-05-18] MEDS: LEVOTHYROXINE 50 MCG TAB PO SCH (06:44)
[2021-05-18 07:03] LABS: Glucose,Whole Blood 136 mg/dL (75-99)
[2021-05-18] MEDS: INSULIN ASPART (NovoLOG) 100 UNIT/ML VIAL SQ SCH ×2 (07:07→12:19)
[2021-05-18] MEDS ORDERED: INSULIN ASPART (NovoLOG) 100 UNIT/ML VIAL SQ SCH ×2 (07:30→12:30)
[2021-05-18] MEDS ORDERED: ENOXAPARIN 40 MG/0.4 ML SYRINGE SQ SCH (09:00)
[2021-05-18] MEDS: CYANOCOBALAMIN 500 MCG TAB PO SCH (09:37)
[2021-05-18] MEDS: ACETAMINOPHEN TAB 500 MG TAB PO SCH (09:37)
[2021-05-18 09:48] VITALS: BP 141/81; PULSE 81; RESP 16; TEMP 98.3
[2021-05-18] MEDS ORDERED: SENNOSIDES 8.6 MG TAB PO STA (09:56)
[2021-05-18] MEDS ORDERED: polyethylene glycoL 3350 17 GM POWD.PACK PO STA (09:56)
--- NOTE | 2021-05-18 10:15 | P.DS ---
Providers Date of admission: 05/16/21 17:48 Attending physician: Kiara Coronel [facility] Course: 71-year-old female was having symptoms of dry cough generalized weakness and nausea vomiting because of which patient went to urgent care thinking that she has COVID-19 although Covid 19 is negative patient is found to have highly elevated blood sugars and patient was later found to be in DKA and patient was subsequently admitted here patient blood sugars has not been under well control lately since her insulin regimen was changed patient looks like takes short- acting insulin around 30 units with each meal does not duglas remain on long- acting insulin patient is type II diabetic insulin deficient. Patient has multiple other provided abnormalities consistent with DKA including hyponatremia and hyperkalemia which improved at this time and patient is presently in DKA protocol patient last anion gap is 15. 05/18/2020 diabetic ketoacidosis completely resolved. Patient will be discharged today. Patient will be discharged on now 42 units of Lantus and follow units with each meal along with sliding scale patient the insulin regimen may need to be increased which can be done as an outpatient patient will check her blood sugars before meals 3 times a day and at bedtime. The present regimen will be more physiologic. Because of lactic is doses a completely discontinued the metformin. Patient will be referred to endocrinology as well. PHYSICAL EXAMINATION: GENERAL: The patient is clinically doing well alert oriented 3 HEENT: Pupils are round and equally reacting to light. EOMI. No scleral icterus. No conjun ctival pallor. Normocephalic, atraumatic. No pharyngeal erythema. No thyromegaly. CARDIOVASCULAR: S1 and S2 present. No murmurs, rubs, or gallops. PULMONARY: Chest is clear to auscultation, no wheezing or crackles. ABDOMEN: Soft, nontender, nondistended, normoactive bowel sounds. No palpable organomegaly. MUSCULOSKELETAL: No joint swelling or deformity. EXTREMITIES: No cyanosis, clubbing, or pedal edema. NEUROLOGICAL: Gross neurological examination did not reveal any focal deficits. SKIN: No rashes. Assessment and plan -Diabetic ketoacidosis acidosis: Resolved and patient is being discharged on above-mentioned regimen -Anion gap metabolic acidosis secondary to diabetic ketoacidosis -Hypothyroidism -Type 2 diabetes mellitus uncontrolled elevated blood sugars . Patient Condition at Discharge: Serious Plan - Discharge Summary Discharge Rx Participant: No New Discharge Prescriptions: New Insulin Aspart [Insulin Aspart Flexpen] 12 unit SQ TID-W/MEALS #5 pen INSULIN LISPRO (humaLOG) [humaLOG] 1 injection SQ DIRECTED #10 ml Insulin Glargine,Hum.rec.anlog [Lantus Solostar Pen] 42 unit SQ DAILY #5 pen Discontinued metFORMIN HCL 500 mg PO W/LUNCH Insulin Lispro-Aabc [Lyumjev Kwikpen U-200] 30 units SQ AC-TID No Action Levothyroxine Sodium [Synthroid] 50 mcg PO DAILY Acetaminophen [Tylenol Arthritis] 1,300 mg PO DAILY Cyanocobalamin (Vitamin B-12) [Vitamin B-12] 1,000 mcg PO DAILY Discharge Medication List Acetaminophen [Tylenol Arthritis] 1,300 mg PO DAILY 05/16/21 [History] Cyanocobalamin (Vitamin B-12) [Vitamin B-12] 1,000 mcg PO DAILY 05/16/21 [History] Levothyroxine Sodium [Synthroid] 50 mcg PO DAILY 05/16/21 [History] INSULIN LISPRO (humaLOG) [humaLOG] 1 injection SQ DIRECTED #10 ml 05/18/21 [Rx] Insulin Aspart [Insulin Aspart Flexpen] 12 unit SQ TID-W/MEALS #5 pen 05/18/21 [Rx] Insulin Glargine,Hum.rec.anlog [Lantus Solostar Pen] 42 unit SQ DAILY #5 pen 05/18/21 [Rx] Follow up Appointment(s)/Referral(s): Shivam Ugalde MD [REFERRING] - 1 Week Vi Mckenzie MD [Primary Care Provider] - 3 Days
[2021-05-18 12:02] LABS: Glucose,Whole Blood 138 mg/dL (75-99)
[2021-05-18] MEDS ORDERED: INSULIN DETEMIR (LEVEMIR) 100 UNIT/ML SYR SQ SCH (21:00)
== END 2021-05-18 13:04 | disposition home or self-care (01) | DRG 638 ==
LOC: EC 16:15 → 3SCARD 17:48
PROVIDERS: ADMIT Hospitalist; ATTEND Hospitalist
DX: E11.10 Type 2 diabetes mellitus with ketoacidosis without coma (principal); E87.1 Hypo-osmolality and hyponatremia; E03.9 Hypothyroidism, unspecified; Z20.822 Contact with and (suspected) exposure to COVID-19; M19.90 Unspecified osteoarthritis, unspecified site; E87.5 Hyperkalemia; Z79.4 Long term (current) use of insulin; Z79.899 Other long term (current) drug therapy; Z79.890 Hormone replacement therapy; Z88.0 Allergy status to penicillin; Z82.49 Family history of ischemic heart disease and other diseases of the circulatory system; Z87.19 Personal history of other diseases of the digestive system
CPT/HCPCS: 36415; 71046; 80048; 80051; 80053; 82009; 82565; 82803; 82947; 83605; 83735; 84100; 84520; 85025; 87635; 93005; 96374; 96375; 99285

== ENCOUNTER 2023-06-03 16:49 | Emergency (ER) | payer MEDICARE, OTHER ==
[2023-06-03 17:06] VITALS: TEMP 98.3
[2023-06-03 17:33] VITALS: RESP 18
[2023-06-03 17:37] LABS: Glucose,Whole Blood 379 mg/dL (70-110)
[2023-06-03 17:43] LABS: Basophils # (A) 0.1 k/uL (0-0.2); Basophils % (A) 1 %; Eosinophils # (A) 0.1 k/uL (0-0.7); Eosinophils % (A) 1 %; HCT 40.3 % (34.0-46.0); HGB 13.1 gm/dL (11.4-16.0); Lymphocytes # (A) 1.6 k/uL (1.0-4.8); Lymphocytes % (A) 25 %; MCH 30.8 pg (25.0-35.0); MCHC 32.6 g/dL (31.0-37.0); MCV 94.5 fL (80.0-100.0); Mean Platelet Volume 9.3; Monocytes # (A) 0.3 k/uL (0-1.0); Monocytes % (A) 5 %; Neutrophils # (A) 4.3 k/uL (1.3-7.7); Neutrophils % (A) 68 %; Platelet Count 183 k/uL (150-450); RBC 4.27 m/uL (3.80-5.40); RDW 13.1 % (11.5-15.5); WBC 6.3 k/uL (3.8-10.6)
[2023-06-03 17:45] LABS: Appearance,Urine Clear (Clear); Bilirubin,Urine Negative (Negative); Blood,Urine Negative (Negative); Color,Urine Colorless; Glucose,Urine (UA) 4+ (Negative); Leukocyte Esterase,Urine Negative (Negative); Nitrite,Urine Negative (Negative); Protein,Urine Negative (Negative); Specific Gravity,Urine 1.018 (1.001-1.035); Urobilinogen,Urine <2.0 mg/dL (<2.0)
[2023-06-03 17:48] LABS: ALT 22 U/L (4-34); African American GFR (CKD) >90 (>60 ml/min/1.73 sqM); Albumin 4.4 g/dL (3.5-5.0); Anion Gap 12 mmol/L; Blood Urea Nitrogen 15 mg/dL (7-17); Calcium 9.4 mg/dL (8.4-10.2); Carbon Dioxide 21 mmol/L (22-30); Chloride 101 mmol/L (98-107); Glucose 389 mg/dL (74-99); Non-African American GFR(CKD) 84 (>60 ml/min/1.73 sqM); Sodium 134 mmol/L (137-145); Total Bilirubin 0.8 mg/dL (0.2-1.3); Total Protein 7.4 g/dL (6.3-8.2)
[2023-06-03 17:50] LABS: AST 42 U/L (14-36); Alkaline Phosphatase 75 U/L (38-126); Magnesium 1.8 mg/dL (1.6-2.3); Potassium 4.9 mmol/L (3.5-5.1)
[2023-06-03 17:55] LABS: Ketones,Urine 2+ (Negative)
--- NOTE | 2023-06-03 18:00 | XR ---
EXAMINATION TYPE: XR chest 2V DATE OF EXAM: 06/03/2023 COMPARISON: Prior chest x-ray May 16, 2021 HISTORY: Palpitations. TECHNIQUE: Frontal and lateral views of the chest are obtained. FINDINGS: There is no suspicious new focal air space opacity, pleural effusion, or pneumothorax seen . The cardiac silhouette size remain within normal limits. The osseous structures are intact. Over lying EKG leads are redemonstrated. IMPRESSION: No acute process. No significant change from prior.
[2023-06-03] MEDS: INSULIN REGULAR 100 UNIT/ML VIAL (IM/SQ) SQ ONE (18:17)
[2023-06-03 18:18] LABS: Glucose,Whole Blood 371 mg/dL (70-110)
[2023-06-03] MEDS: SODIUM CHLORIDE 0.9% 1,000 ML IV ONE (18:18)
[2023-06-03 18:55] VITALS: BP 159/88; PULSE 89
[2023-06-03 18:55] LABS: Glucose,Whole Blood 323 mg/dL (70-110)
--- NOTE | 2023-06-03 19:20 | ED ---
Recheck HPI - General Chief Complaint: Recheck/Abnormal Lab/Rx Stated Complaint: hx of ketoacidosis Time Seen by Provider: 06/03/23 17:04 Source: patient Mode of arrival: ambulatory Limitations: no limitations - History of Present Illness Initial Comments: 73-year-old female presenting with chief complaint of elevated blood sugar and heart rate. Patient states that earlier today her glucose meter indicated that her sugar was above 400. She took her regular 10 units of insulin and then another 10 units of insulin but the meter continue to read over 400. She noted on her pulse ox that her heart rate was elevated. She was starting to feel sluggish and "like I was moving through mud". She states that the last time she felt like that she had gone into DKA so she came to the hospital to be evaluated. She denies any chest pain, difficulty breathing, abdominal pain, nausea, vomiting, fever, chills, cough, congestion, sore throat, numbness, ting ling. - Related Data Home Medications Medication Instructions Recorded Confirmed Acetaminophen [Tylenol Arthritis] 1,300 mg PO DAILY 05/16/21 05/16/21 Cyanocobalamin (Vitamin B-12) 1,000 mcg PO DAILY 05/16/21 05/16/21 [Vitamin B-12] Levothyroxine Sodium [Synthroid] 50 mcg PO DAILY 05/16/21 05/16/21 Previous Rx's Medication Instructions Recorded INSULIN LISPRO (humaLOG) [humaLOG] 1 injection SQ DIRECTED #10 ml 05/18/21 Insulin Aspart [Insulin Aspart 12 unit SQ TID-W/MEALS #5 pen 05/18/21 Flexpen] Insulin Glargine,Hum.rec.anlog 42 unit SQ DAILY #5 pen 05/18/21 [Lantus Solostar Pen] Allergies Allergy/AdvReac Type Severity Reaction Status Date / Time Penicillins Allergy Rash/Hives. Verified 06/03/23 16:55 ITCHING. INFLAMMED SKIN. Review of Systems ROS Statement: Those systems with pertinent positive or pertinent negative responses have been documented in the HPI. ROS Other: All systems not noted in ROS Statement are negative. Past Medical History Past Medical History: Diabetes Mellitus, Osteoarthritis (OA), Sleep Apnea/CPAP/BIPAP, Thyroid Disorder Additional Past Medical History / Comment(s): INSULIN DEPENDENT JUST GOT NEW C- PAP History of Any Multi-Drug Resistant Organisms: None Reported Past Surgical History: Appendectomy, Tonsillectomy Additional Past Surgical History / Comment(s): RIGHT OOPHERECTOMY. ABDOMINALPLASTY, BREAST REDUCTION. BILATERAL BLEPHAROPLASTY. Past Anesthesia/Blood Transfusion Reactions: Previous Problems w/ Anesthesia Additional Past Anesthesia/Blood Transfusion Reaction / Comment(s): STATES "" POST ANESTHESIA/SURGERY A CHILD. Past Psychological History: No Psychological Hx Reported Smoking Status: Never smoker Past Alcohol Use History: None Reported Past Drug Use History: None Reported - Past Family History Mother Family Medical History: Congestive Heart Failure (CHF) Father Family Medical History: No Reported History General Exam Limitations: no limitations General appearance: alert, in no apparent distress Head exam: Present: atraumatic, normocephalic Eye exam: Present: normal appearance, PERRL, EOMI Neck exam: Present: normal inspection Respiratory exam: Present: normal lung sounds bilaterally. Absent: respiratory distress, wheezes, rales, rhonchi, stridor Cardiovascular Exam: Present: regular rate, normal rhythm, normal heart sounds. Absent: systolic murmur, diastolic murmur, rubs, gallop, clicks Extremities exam: Absent: pedal edema Neurological exam: Present: alert, oriented X3 Psychiatric exam: Present: normal affect, normal mood Skin exam: Present: warm, dry Course Vital Signs 06/03/23 06/03/23 06/03/23 16:50 17:15 18:16 Temperature 98.3 F Pulse Rate 15 L 108 H 89 Respiratory 20 18 18 Rate Blood Pressure 194/91 154/94 159/88 O2 Sat by Pulse 98 99 98 Oximetry Medical Decision Making - Medical Decision Making Was pt. sent in by a medical professional or institution (, PA, [facility], urgent care, hospital, or [facility]...) When possible be specific @ -No Did you speak to anyone other than the patient for history (EMS, parent, family, police, friend...)? What history was obtained from this source @ -No Did you review nursing and triage notes (agree or disagree)? Why? @ -I reviewed and agree with nursing and triage notes Were old charts reviewed (outside hosp., previous admission, EMS record, old EKG, old radiological studies, urgent care reports/EKG's, [facility] records)? Report findings @ -No old charts were reviewed Differential Diagnosis (chest pain, altered mental status, abdominal pain women, abdominal pain men, vaginal bleeding, weakness, fever, dyspnea, syncope, headache, dizziness, GI bleed, back pain, seizure, CVA, palpatations, mental health, musculoskeletal)? @ -Differential includes diabetic hyperglycemia, DKA, ACS, infection, this is not an all-inclusive list EKG interpreted by me (3pts min.). @ -EKG shows sinus rhythm ventricular rate 89. CA interval 172. QRS 101. QT 403. QTc 449. Left axis deviation. X-rays interpreted by me (1pt min.). @ -Chest x-ray shows no acute process and no significant change from prior CT interpreted by me (1pt min.). @ -None done U/S interpreted by me (1pt. min.). @ -None done What testing was considered but not performed or refused? (CT, X-rays, U/S, labs)? Why? @ -None What meds were considered but not given or refused? Why? @ -None Did you discuss the management of the patient with other professionals (johnie ocampo i.e. , PA, [employer], lab, RT, psych nurse, public health social worker, healthcare consultant, teacher, traffic police officer, case specialist)? Give summary @ -No Was smoking cessation discussed for >3mins.? @ -No Was critical care preformed (if so, how long)? @ -No Were there social determinants of health that impacted care today? How? (Homelessness, low income, unemployed, alcoholism, drug addiction, transportation, low edu. Level, literacy, decrease access to med. care, group home, rehab)? @ -No Was there de-escalation of care discussed even if they declined (Discuss DNR or withdrawal of care, Hospice)? DNR status @ -No What co-morbidities impacted this encounter? (DM, HTN, Smoking, COPD, CAD, Cancer, CVA, ARF, Chemo, Hep., AIDS, mental health diagnosis, sleep apnea, morbid obesity)? @ -Diabetes Was patient admitted / discharged? Hospital course, mention meds given and route, prescriptions, significant lab abnormalities, going to OR and other pertinent info. @ -73-year-old female with history of insulin-dependent type 2 diabetes presenting with chief complaint of elevated glucose and heart rate. She states that she was starting to not feel well at home and noticed that her sugars were reading over 400 and her heart rate was elevated above 100. On physical exam patient is mildly tachycardic, heart and lungs are clear to auscultation. Lab work shows no leukocytosis or anemia. Glucose is 379, patient received 6 units of regular insulin and 1 L fluid bolus. Patient does have 2+ ketones in her urine, however she is not acidotic with a normal anion gap of 12 and CO2 is only 21. On reassessment patient states that she feels much better and is requesting to go home. She is educated on symptoms that should prompt reevaluation. Discharged home. Follow-up with PCP. Report back to ER with any new or worsening symptoms. Discussed return parameters and answered all questions. Patient conveyed verbal understanding and agreed to the plan. I discussed this case in detail with my attending Dr. Del Toro Undiagnosed new problem with uncertain prognosis? @ -No Drug Therapy requiring intensive monitoring for toxicity (Heparin, Nitro, Insulin, Cardizem)? @ -No Were any procedures done? @ -No Diagnosis/symptom? @ -Diabetic hyperglycemia Acute, or Chronic, or Acute on Chronic? @ -Acute Uncomplicated (without systemic symptoms) or Complicated (systemic symptoms)? @ -Complicated Side effects of treatment? @ -No Exacerbation, Progression, or Severe Exacerbation? @ -No Poses a threat to life or bodily function? How? (Chest pain, [place], AL, pneumonia, PE, COPD, DKA, ARF, appy, cholecystitis, CVA, Diverticulitis, Homicidal, Suicidal, threat to staff... and all critical care pts) @ -No - Lab Data Result diagrams: 06/03/23 17:20 06/03/23 17:20 Lab Results 06/03/23 06/03/23 06/03/23 Range/Units 17:18 17:20 17:20 WBC 6.3 (3.8-10.6) k/uL RBC 4.27 (3.80-5.40) m/uL Hgb 13.1 (11.4-16.0) gm/dL Hct 40.3 (34.0-46.0) % MCV 94.5 (80.0-100.0) fL MCH 30.8 (25.0-35.0) pg MCHC 32.6 (31.0-37.0) g/dL RDW 13.1 (11.5-15.5) % Plt Count 183 (150-450) k/uL MPV 9.3 Neutrophils % 68 % Lymphocytes % 25 % Monocytes % 5 % Eosinophils % 1 % Basophils % 1 % Neutrophils # 4.3 (1.3-7.7) k/uL Lymphocytes # 1.6 (1.0-4.8) k/uL Monocytes # 0.3 (0-1.0) k/uL Eosinophils # 0.1 (0-0.7) k/uL Basophils # 0.1 (0-0.2) k/uL Sodium (137-145) mmol/L Potassium (3.5-5.1) mmol/L Chloride (98-107) mmol/L Carbon Dioxide (22-30) mmol/L Anion Gap mmol/L BUN (7-17) mg/dL Creatinine (0.52-1.04) mg/dL Est GFR (CKD-EPI)AfAm (>60 ml/min/1.73 sqM) Est GFR (CKD-EPI)NonAf (>60 ml/min/1.73 sqM) Glucose (74-99) mg/dL POC Glucose (mg/dL) 379 H (70-110) mg/dL POC Glu Orthodontic Laboratory Technician ID Yoli Waters Plasma Lactic Acid Lazaro (0.7-2.0) mmol/L Calcium (8.4-10.2) mg/dL Magnesium (1.6-2.3) mg/dL Total Bilirubin (0.2-1.3) mg/dL AST (14-36) U/L ALT (4-34) U/L Alkaline Phosphatase (38-126) U/L Total Protein (6.3-8.2) g/dL Albumin (3.5-5.0) g/dL TSH (0.465-4.680) mIU/L Urine Color Colorless Urine Appearance Clear (Clear) Urine pH 5.0 (5.0-8.0) Ur Specific [place] 1.018 (1.001-1.035) Urine Protein Negative (Negative) Urine Glucose (UA) 4+ H (Negative) Urine Ketones 2+ H (Negative) Urine Blood Negative (Negative) Urine Nitrite Negative (Negative) Urine Bilirubin Negative (Negative) Urine Urobilinogen <2.0 (<2.0) mg/dL Ur Leukocyte Esterase Negative (Negative) Influenza Type A (PCR) (Not Detectd) Influenza Type B (PCR) (Not Detectd) RSV (PCR) (Not Detectd) SARS-CoV-2 (PCR) (Not Detectd) 06/03/23 06/03/23 06/03/23 Range/Units 17:20 17:20 17:20 WBC (3.8-10.6) k/uL RBC (3.80-5.40) m/uL Hgb (11.4-16.0) gm/dL Hct (34.0-46.0) % MCV (80.0-100.0) fL MCH (25.0-35.0) pg MCHC (31.0-37.0) g/dL RDW (11.5-15.5) % Plt Count (150-450) k/uL MPV Neutrophils % % Lymphocytes % % Monocytes % % Eosinophils % % Basophils % % Neutrophils # (1.3-7.7) k/uL Lymphocytes # (1.0-4.8) k/uL Monocytes # (0-1.0) k/uL Eosinophils # (0-0.7) k/uL Basophils # (0-0.2) k/uL Sodium 134 L (137-145) mmol/L Potassium 4.9 (3.5-5.1) mmol/L Chloride 101 (98-107) mmol/L Carbon Dioxide 21 L (22-30) mmol/L Anion Gap 12 mmol/L BUN 15 (7-17) mg/dL Creatinine 0.72 (0.52-1.04) mg/dL Est GFR (CKD-EPI)AfAm >90 (>60 ml/min/1.73 sqM) Est GFR (CKD-EPI)NonAf 84 (>60 ml/min/1.73 sqM) Glucose 389 H (74-99) mg/dL POC Glucose (mg/dL) (70-110) mg/dL POC Glu Orthodontic Laboratory Technician ID Plasma Lactic Acid Lazaro 1.6 (0.7-2.0) mmol/L Calcium 9.4 (8.4-10.2) mg/dL Magnesium 1.8 (1.6-2.3) mg/dL Total Bilirubin 0.8 (0.2-1.3) mg/dL AST 42 H (14-36) U/L ALT 22 (4-34) U/L Alkaline Phosphatase 75 (38-126) U/L Total Protein 7.4 (6.3-8.2) g/dL Albumin 4.4 (3.5-5.0) g/dL TSH 1.520 (0.465-4.680) mIU/L Urine Color Urine Appearance (Clear) Urine pH (5.0-8.0) Ur Specific [place] (1.001-1.035) Urine Protein (Negative) Urine Glucose (UA) (Negative) Urine Ketones (Negative) Urine Blood (Negative) Urine Nitrite (Negative) Urine Bilirubin (Negative) Urine Urobilinogen (<2.0) mg/dL Ur Leukocyte Esterase (Negative) Influenza Type A (PCR) Not Detected (Not Detectd) Influenza Type B (PCR) Not Detected (Not Detectd) RSV (PCR) Not Detected (Not Detectd) SARS-CoV-2 (PCR) Not Detected (Not Detectd) 06/03/23 06/03/23 Range/Units 18:16 18:53 WBC (3.8-10.6) k/uL RBC (3.80-5.40) m/uL Hgb (11.4-16.0) gm/dL Hct (34.0-46.0) % MCV (80.0-100.0) fL MCH (25.0-35.0) pg MCHC (31.0-37.0) g/dL RDW (11.5-15.5) % Plt Count (150-450) k/uL MPV Neutrophils % % Lymphocytes % % Monocytes % % Eosinophils % % Basophils % % Neutrophils # (1.3-7.7) k/uL Lymphocytes # (1.0-4.8) k/uL Monocytes # (0-1.0) k/uL Eosinophils # (0-0.7) k/uL Basophils # (0-0.2) k/uL Sodium (137-145) mmol/L Potassium (3.5-5.1) mmol/L Chloride (98-107) mmol/L Carbon Dioxide (22-30) mmol/L Anion Gap mmol/L BUN (7-17) mg/dL Creatinine (0.52-1.04) mg/dL Est GFR (CKD-EPI)AfAm (>60 ml/min/1.73 sqM) Est GFR (CKD-EPI)NonAf (>60 ml/min/1.73 sqM) Glucose (74-99) mg/dL POC Glucose (mg/dL) 371 H 323 H (70-110) mg/dL POC Glu Orthodontic Laboratory Technician ID Jt, Yoli [place], Yoli Plasma Lactic Acid Lazaro (0.7-2.0) mmol/L Calcium (8.4-10.2) mg/dL Magnesium (1.6-2.3) mg/dL Total Bilirubin (0.2-1.3) mg/dL AST (14-36) U/L ALT (4-34) U/L Alkaline Phosphatase (38-126) U/L Total Protein (6.3-8.2) g/dL Albumin (3.5-5.0) g/dL TSH (0.465-4.680) mIU/L Urine Color Urine Appearance (Clear) Urine pH (5.0-8.0) Ur Specific [place] (1.001-1.035) Urine Protein (Negative) Urine Glucose (UA) (Negative) Urine Ketones (Negative) Urine Blood (Negative) Urine Nitrite (Negative) Urine Bilirubin (Negative) Urine Urobilinogen (<2.0) mg/dL Ur Leukocyte Esterase (Negative) Influenza Type A (PCR) (Not Detectd) Influenza Type B (PCR) (Not Detectd) RSV (PCR) (Not Detectd) SARS-CoV-2 (PCR) (Not Detectd) Disposition Clinical Impression: Hyperglycemia due to diabetes mellitus Disposition: HOME SELF-CARE Condition: Good Instructions (If sedation given, give patient instructions): Diabetic Hyperglycemia (ED) Additional Instructions: Follow-up with PCP. Report back to ER with any new or worsening symptoms. Is patient prescribed a controlled substance at d/c from ED?: No Referrals: Vi Mckenzie MD [Primary Care Provider] - 1-2 days Time of Disposition: 19:20
== END 2023-06-03 19:29 | disposition home or self-care (01) ==
LOC: EC 16:49
DX: E11.65 Type 2 diabetes mellitus with hyperglycemia (principal); G47.30 Sleep apnea, unspecified; E07.9 Disorder of thyroid, unspecified; M19.90 Unspecified osteoarthritis, unspecified site; Z79.890 Hormone replacement therapy; Z79.899 Other long term (current) drug therapy; Z88.0 Allergy status to penicillin; Z20.822 Contact with and (suspected) exposure to COVID-19
CPT/HCPCS: 36415; 71046; 80053; 81003; 83605; 83735; 84443; 85025; 87636; 93005; 96360; 99284